=== PATIENT | female | born 1985 | race Caucasian/White ===

== ENCOUNTER 2016-10-03 06:09 | Observation (INO) | payer MEDICAID, OTHER ==
[~2016-10-03] VITALS: Ht 160 cm; Wt 75.5 kg
[2016-10-03 06:17] VITALS: Ht 160 cm; Wt 75.5 kg
[2016-10-03] MEDS ORDERED: ONDANSETRON 4 MG INJ IV STA (06:32)
[2016-10-03] MEDS ORDERED: HYDROmorphONE 1 MG/ML SYG IV STA (06:32)
[2016-10-03] MEDS ORDERED: SOD CHLORIDE 0.9% 1,000 ML IV STA (06:32)
[2016-10-03 07:04] LABS: BASOPHILS % 0.4 % (0.0-2.0); EOSINOPHILS # 0.4 10^3/ul (0.0-0.5); EOSINOPHILS % 5.8 % (0.0-7.0); HEMATOCRIT 39.4 % (37.0-47.0); HEMOGLOBIN 13.4 g/dl (12.0-16.0); LYMPHOCYTES # 2.6 10^3/ul (0.8-2.9); MEAN CORPUSCULAR HEMOGLOBIN 30.3 pg (29.0-33.0); MEAN CORPUSCULAR VOLUME 89.1 fl (82.0-101.0); MEAN PLATELET VOLUME 10.8 fl (7.4-10.4); MONOCYTE # 0.5 10^3/ul (0.3-0.9); MONOCYTES % 7.7 % (0.0-11.0); NEUTROPHIL # 3.2 10^3/ul (1.6-7.5); NEUTROPHILS % 48.1 % (39.0-77.0); PLATELET COUNT 226 10^3/UL (140-415); RED BLOOD COUNT 4.42 10^6/ul (4.20-5.40); WHITE BLOOD COUNT 6.7 10^3/ul (4.8-10.8)
[2016-10-03 07:13] LABS: ADD UMIC YES; UR ASCORBIC ACID 20 mg/dL (NEGATIVE); UR BILIRUBIN (Dip) NEGATIVE (NEGATIVE); UR BLOOD (Dip) 2+ mg/dL (NEGATIVE); UR CLARITY SLIGHTLY CLOUDY (CLEAR); UR COLOR YELLOW (YELLOW); UR GLUCOSE (Dip) NEGATIVE (NEGATIVE); UR KETONES (Dip) NEGATIVE (NEGATIVE); UR LEUKOCYTE ESTERASE (Dip) 2+ Leu/ul (NEGATIVE); UR MUCUS FEW /HPF (NONE SEEN); UR NITRITE (Dip) NEGATIVE (NEGATIVE); UR RBC 9 /HPF (0-5); UR SPECIFIC GRAVITY (Dip) 1.024 (1.003-1.030); UR SQUAMOUS EPITHELIAL CELL FEW /HPF (FEW); UR TOTAL PROTEIN (Dip) NEGATIVE (NEGATIVE); UR UROBILINOGEN (Dip) NEGATIVE (NEGATIVE)
[2016-10-03 07:19] LABS: ALBUMIN 4.4 g/dl (3.3-4.9); ALBUMIN/GLOBULIN RATIO 1.29; BILIRUBIN,INDIRECT 0.4 mg/dl (0-1.1); BILIRUBIN,TOTAL 0.4 mg/dl (0.2-1.3); CALCIUM 9.1 mg/dl (8.4-10.2); CREATININE 0.74 mg/dl (0.44-1.00); TOTAL PROTEIN 7.8 g/dl (6.1-8.1)
[2016-10-03] MEDS ORDERED: IOHEXOL 300MG/ML 150 ML BTL ONE (07:38)
[2016-10-03] MEDS ORDERED: SOD CHLORIDE 0.9% 100 ML ONE (07:38)
--- NOTE | 2016-10-03 08:05 | RADRPT ---
PROCEDURE: CT abdomen and pelvis with contrast. CLINICAL INDICATION: abdominal pain TECHNIQUE: CT scan of the abdomen and pelvis with contrast [facility] The patient was scanned after administration of 100 cc of Omnipaque-300 intravenous contrast. Sagittal and coronal reformatted images were obtained from the axial source images. One or more of the following dose reduction techniques were used: - Automated exposure control. - Adjustment of the mA and/or kV according to patient size. - Use of iterative reconstruction technique. DLP 829.8 mGycm. CTDIvol 13.3 mGy COMPARISON: None. FINDINGS: The lung bases are clear. There is normal density and enhancement of the liver with no focal lesion. There is mild prominence of the biliary ductal system without roberto carlos dilatation. Debris is seen in the gallbladder which cou ld represent sludge or stones with possible borderline gallbladder wall thickening without visible s urrounding fat stranding. The spleen is unremarkable without mass. The adrenal glands are within normal limits without mass. The kidneys enhance symmetrically bilaterally without hydronephrosis or perinephric stranding. The pancreas is unremarkable without focal lesion or surrounding inflammatory changes. There is no bowel obstruction or focal bowel inflammation. The appendix is unremarkable. There is a diffusely prominently fecal filled colon. There is no free air. There is no free fluid. There are no enlarged lymph nodes. The aorta is unremarkable and there is no acute osseous abnormality. The uterus and adnexal structures are grossly within normal limits. Follicular changes seen within t he ovaries bilaterally. IMPRESSION: The gallbladder has either sludge or stones with possible gallbladder wall thickening that is indete rminate and can be better assessed with gallbladder ultrasound. There is slight prominence of the c ommon duct without roberto carlos dilatation and this can be correlate with bilirubin levels. There is a diffusely fecal filled colon. No evidence of bowel obstruction or inflammation. There i s no appendicitis. RPTAT: AA .Henry Andersen MD, MD Date Time Electronically viewed and signed by .Henry Andersen MD, MD on 10/03/2016 08:04 .Debbie/
--- NOTE | 2016-10-03 08:46 | RADRPT ---
PROCEDURE: US Abdomen Limited . CLINICAL INDICATION: Abdominal pain TECHNIQUE: Multiple real-time images were acquired of the patient's right upper quadrant abdomen u tilizing a high resolution transducer. COMPARISON: CT October 03, 2016 FINDINGS: The liver measures 13.1 cm and demonstrates a normal echogenicity. The gallbladder is filled with a moderate amount of bile. Multiple echogenic, shadowing gallstones are identified in the gallbladder . The largest measures up to approximately 2.5 cm, near the gallbladder neck. The gallbladder wall is not thickened at 2.8 mm. No pericholecystic fluid is noted. The common bile duct measures 8.1 mm in diameter. The pancreas is not well visualized. Antegrade flow is seen in the portal vein. Right kidney measures 10.3 cm. Right kidney demonstrates a normal echogenicity. Mild right hydrone phrosis is observed. No solid masses or stones are seen. IMPRESSION: Cholelithiasis with a dilated common bile duct. Etiology of common bile duct dilation is uncertain. Distal common bile duct obstruction is not excluded. If further characterization is needed MRCP o r ERCP could be helpful. Pancreas not well visualized. If characterization of this structure is needed repeat exam or MRI is recommended. Mild right hydronephrosis. Etiology is uncertain. Continued follow-up to assess for persistence of this finding can be considered. RPTAT: AA .Jonny Wolf MD, Date Time Electronically viewed and signed by .Jonny Wolf MD, on 10/03/2016 08:45 .P/
[2016-10-03 11:30] VITALS: TEMP 98.2
--- NOTE | 2016-10-03 11:37 | RADRPT ---
PROCEDURE: MRCP. CLINICAL INDICATION: Right upper quadrant pain. TECHNIQUE: MRCP was performed on the a high-resolution, high Lola field strength scanner. Patien haley was examined without contrast. 3-D coronal rotating MIP images of the biliary tree are available for review. COMPARISON: Correlation with CT and ultrasound from the same day. FINDINGS: Multiple stones are present within the gallbladder measuring up to 2.9 x 2.2 cm within the gallbladd er body. There are at least 4 additional calculi seen within the gallbladder fundus measuring up to 1.3 cm in diameter. No definite acute gallbladder wall edema or pericholecystic inflammatory ewing es are seen. There is mild prominence of the proximal common bile duct which measures up to 6.4 mm in diameter. A focal signal abnormality within the distal CBD measures 5 mm in diameter, consistent with an obstructing stone, located approximately 1 cm from the ampulla. There is no significant in trahepatic or pancreatic ductal dilatation. There is no evidence of pancreatic divisum. There is mild fullness of the right renal pelvis without roberto carlos hydronephrosis. The liver, spleen, a drenal glands, kidneys, and stomach demonstrate normal signal intensity and morphology. The visuali zed bowel is unremarkable. IMPRESSION: 1. 5 mm obstructive calculus in the distal common bile duct resulting mild extrahepatic ductal dila tation (pictured below). 2. Cholelithiasis without evidence of cholecystitis. RPTAT: JJ .Nate Storey MD, Date Time Electronically viewed and signed by .Nate Storey MD, on 10/03/2016 11:37 .A/
--- NOTE | 2016-10-03 12:09 | ERA ---
ER Documentation Chief Complaint Date/Time DATE: 10/03/16 TIME: 12:06 Chief Complaint right abd pain, nausea,took Tylenol at 0430 HPI This is a 31-year-old female complains of pain in the right mid abdomen onset this morning. The patient says she is nauseated but no vomiting no diarrhea. The pain is described as sharp and nonradiating. She says she has no fever no decrease in appetite no prior symptoms like this in the past. No back pain hematuria dysuria or vaginal discharge. ROS All systems reviewed and are negative except as per history of present illness. Allergies Allergies: Coded Allergies: No Known Allergy (Unverified , 10/03/16) PMhx/Soc Medical and Surgical Hx: pt denies Medical Hx, pt denies Surgical Hx Hx Alcohol Use: No Hx Substance Use: No Hx Tobacco Use: No Smoking Status: Never smoker FmHx Family History: No coronary disease Physical Exam Vitals Vital Signs Date Time Temp Pulse Resp B/P Pulse Ox O2 Delivery O2 Flow Rate FiO2 10/03/16 12:59 68 17 119/65 100 Room Air 10/03/16 11:30 98.2 76 18 118/56 99 Room Air 10/03/16 06:17 97.5 85 18 114/55 99 Physical Exam Const: Well-developed, well-nourished Head: Atraumatic, normocephalic Eyes: Normal Conjunctiva, PERRLA, EOMI, normal sclera, no nystagmus ENT: Normal External Ears, Nose and Mouth, moist mucus membranes. Neck: Full range of motion. No meningismus, no lymphadenopathy. Resp: Clear to auscultation bilaterally, no wheezing, rhonchi, rales Cardio: Regular rate and rhythm, no murmurs, S1 S2 present Abd: Soft, tenderness to the right mid abdomen that extends into the right lower quadrant moderate, non distended. Normal bowel sounds, no guarding or rebound, no pulsitile abdominal masses or bruits Skin: No petechiae or rashes, no ecchymosis , no maculopapular rash Back: No midline or flank tenderness Ext: No cyanosis, or edema, FROM x 4, normal inspection, neurovascularly intact x 4 Neur: Awake and alert, STR 5/5 x 4, sensation intact x 4, no focal findings, cerebellum intact Psych: Normal Mood and Affect Result Diagram: 10/03/16 0650 10/03/16 0650 Results 24 hrs Laboratory Tests Test 10/03/16 06:50 10/03/16 06:52 White Blood Count 6.710^3/ul Red Blood Count 4.4210^6/ul Hemoglobin 13.4g/dl Hematocrit 39.4% Mean Corpuscular Volume 89.1fl Mean Corpuscular Hemoglobin 30.3pg Mean Corpuscular Hemoglobin Concent 34.0g/dl Red Cell Distribution Width 12.0% Platelet Count 75084^3/UL Mean Platelet Volume 10.8fl Neutrophils % 48.1% Lymphocytes % 38.0% Monocytes % 7.7% Eosinophils % 5.8% Basophils % 0.4% Nucleated Red Blood Cells % 0.0/100WBC Neutrophils # 3.210^3/ul Lymphocytes # 2.610^3/ul Monocytes # 0.510^3/ul Eosinophils # 0.410^3/ul Basophils # 0.010^3/ul Nucleated Red Blood Cells # 0.010^3/ul Sodium Level 145mmol/L Potassium Level 4.0mmol/L Chloride Level 105mmol/L Carbon Dioxide Level 25mmol/L Anion Gap 19 Blood Urea Nitrogen 12mg/dl Creatinine 0.74mg/dl Glucose Level 89mg/dl Calcium Level 9.1mg/dl Total Bilirubin 0.4mg/dl Direct Bilirubin 0.00mg/dl Indirect Bilirubin 0.4mg/dl Aspartate Amino Transf (AST/SGOT) 72IU/L Alanine Aminotransferase (ALT/SGPT) 52IU/L Alkaline Phosphatase 64IU/L Total Protein 7.8g/dl Albumin 4.4g/dl Globulin 3.40g/dl Albumin/Globulin Ratio 1.29 Lipase 204U/L Urine Color YELLOW Urine Clarity SLIGHTLY CLOUDY Urine pH 5.0 Urine Specific Carmen 1.024 Urine Ketones NEGATIVEmg/dL Urine Nitrite NEGATIVEmg/dL Urine Bilirubin NEGATIVEmg/dL Urine Urobilinogen NEGATIVEmg/dL Urine Leukocyte Esterase 2+Sole/ul Urine Microscopic RBC 9/HPF Urine Microscopic WBC 17/HPF Urine Squamous Epithelial Cells FEW/HPF Urine Mucus FEW/HPF Urine Hemoglobin 2+mg/dL Urine Glucose NEGATIVEmg/dL Urine Total Protein NEGATIVEmg/dl Current Medications Medications (Trade) Dose Ordered Sig/Reid Route PRN Reason Start Time Stop Time Status Last Admin Dose Admin Sodium Chloride (NS) 1,000 ml @ 1,000 mls/hr Q1H STAT IV 10/03/16 06:32 10/03/16 07:31 DC 10/03/16 06:45 Hydromorphone HCl (Dilaudid) 1 mg ONCE STAT IV 10/03/16 06:32 10/03/16 06:34 DC 10/03/16 06:45 Ondansetron HCl (Zofran Inj) 4 mg ONCE STAT IV 10/03/16 06:32 10/03/16 06:34 DC 10/03/16 06:45 IV Flush 10 ml 10 ml STK-MED ONCE .ROUTE 10/03/16 07:38 10/03/16 07:39 DC 10/03/16 07:58 Sodium Chloride (NS) 100 ml @ ud STK-MED ONCE .ROUTE 10/03/16 07:38 10/03/16 07:39 DC 10/03/16 07:59 Iohexol (Omnipaque 300mg/ ml) 150 ml STK-MED ONCE .ROUTE 10/03/16 07:38 10/03/16 07:39 DC 10/03/16 07:59 Procedures/MDM PROCEDURE: CT abdomen and pelvis with contrast. CLINICAL INDICATION: abdominal pain TECHNIQUE: CT scan of the abdomen and pelvis with contrast was performed on a multi-slice CT scanner . The patient was scanned after administration of 100 cc of Omnipaque-300 intravenous contrast. Sagittal and coronal reformatted images were obtained from the axial source images. One or more of the following dose reduction techniques were used: - Automated exposure control. - Adjustment of the mA and/or kV according to patient size. - Use of iterative reconstruction technique. DLP 829.8 mGycm. CTDIvol 13.3 mGy COMPARISON: None. FINDINGS: The lung bases are clear. There is normal density and enhancement of the liver with no focal lesion. There is mild prominence of the biliary ductal system without roberto carlos dilatation. Debris is seen in the gallbladder which could represent sludge or stones with possible borderline gallbladder wall thickening without visible surrounding fat stranding. The spleen is unremarkable without mass. The adrenal glands are within normal limits without mass. The kidneys enhance symmetrically bilaterally without hydronephrosis or perinephric stranding. The pancreas is unremarkable without focal lesion or surrounding inflammatory changes. There is no bowel obstruction or focal bowel inflammation. The appendix is unremarkable. There is a diffusely prominently fecal filled colon. There is no free air. There is no free fluid. There are no enlarged lymph nodes. The aorta is unremarkable and there is no acute osseous abnormality. The uterus and adnexal structures are grossly within normal limits. Follicular changes seen within the ovaries bilaterally. IMPRESSION: The gallbladder has either sludge or stones with possible gallbladder wall thickening that is indeterminate and can be better assessed with gallbladder ultrasound. There is slight prominence of the common duct without roberto carlos dilatation and this can be correlate with bilirubin levels. There is a diffusely fecal filled colon. No evidence of bowel obstruction or inflammation. There is no appendicitis. RPTAT: AA .Henry Andersen MD, Date Time Electronically viewed and signed by .Henry Andersen MD, MD on 10/03/2016 08:04 .J/ CC: GARO BRANCH DO PROCEDURE: US Abdomen Limited . CLINICAL INDICATION: Abdominal pain TECHNIQUE: Multiple real-time images were acquired of the patient's right upper quadrant abdomen utilizing a high resolution transducer. COMPARISON: CT October 03, 2016 FINDINGS: The liver measures 13.1 cm and demonstrates a normal echogenicity. The gallbladder is filled with a moderate amount of bile. Multiple echogenic, shadowing gallstones are identified in the gallbladder. The largest measures up to approximately 2.5 cm, near the gallbladder neck. The gallbladder wall is not thickened at 2.8 mm. No pericholecystic fluid is noted. The common bile duct measures 8.1 mm in diameter. The pancreas is not well visualized. Antegrade flow is seen in the portal vein. Right kidney measures 10.3 cm. Right kidney demonstrates a normal echogenicity. Mild right hydronephrosis is observed. No solid masses or stones are seen. IMPRESSION: Cholelithiasis with a dilated common bile duct. Etiology of common bile duct dilation is uncertain. Distal common bile duct obstruction is not excluded. If further characterization is needed MRCP or ERCP could be helpful. Pancreas not well visualized. If characterization of this structure is needed repeat exam or MRI is recommended. Mild right hydronephrosis. Etiology is uncertain. Continued follow-up to assess for persistence of this finding can be considered. RPTAT: AA .Jonny Wolf MD, MD Date Time Electronically viewed and signed by .Jonny Wolf MD, MD on 10/03/2016 08:45 .P/ CC: GARO BRANCH DO PROCEDURE: MRCP. CLINICAL INDICATION: Right upper quadrant pain. TECHNIQUE: MRCP was performed on the a high-resolution, high Lola field strength scanner. Patient was examined without contrast. 3-D coronal rotating MIP images of the biliary tree are available for review. COMPARISON: Correlation with CT and ultrasound from the same day. FINDINGS: Multiple stones are present within the gallbladder measuring up to 2.9 x 2.2 cm within the gallbladder body. There are at least 4 additional calculi seen within the gallbladder fundus measuring up to 1.3 cm in diameter. No definite acute gallbladder wall edema or pericholecystic inflammatory changes are seen. There is mild prominence of the proximal common bile duct which measures up to 6.4 mm in diameter. A focal signal abnormality within the distal CBD measures 5 mm in diameter, consistent with an obstructing stone, located approximately 1 cm from the ampulla. There is no significant intrahepatic or pancreatic ductal dilatation. There is no evidence of pancreatic divisum. There is mild fullness of the right renal pelvis without roberto carlos hydronephrosis. The liver, spleen, adrenal glands, kidneys, and stomach demonstrate normal signal intensity and morphology. The visualized bowel is unremarkable. IMPRESSION: 1. 5 mm obstructive calculus in the distal common bile duct resulting mild extrahepatic ductal dilatation (pictured below). 2. Cholelithiasis without evidence of cholecystitis. RPTAT: JJ .Nate Storey MD, Date Time Electronically viewed and signed by .Nate Storey MD, on 10/03/2016 11:37 .A/ CC: GARO BRANCH DO Patient is MRCP demonstrated a 5 mm obstructive stone in the duct. I paged Dr. banks upper GI. The patient admitted to the hospital for ERCP for stone removal and subsequent gallbladder removal to follow Departure Diagnosis: Primary Impression: Choledocholithiasis Condition: Stable GARO BRANCH DO Oct 03, 2016 12:09
[2016-10-03] MEDS ORDERED: SOD CHLORIDE 0.9% 1,000 ML IV SCH (13:36)
[2016-10-03] MEDS ORDERED: ONDANSETRON 4 MG INJ IV PRN ×2 (14:00→14:30)
[2016-10-03] MEDS ORDERED: ACETAMINOPHEN 325 MG TAB PO PRN ×2 (14:00→14:30)
[2016-10-03] MEDS ORDERED: NACL 0.9% 3 ML SYG IV SCH (14:30)
[2016-10-03] MEDS ORDERED: HYDROCODONE/APAP (5/325) TAB PO PRN (14:30)
[2016-10-03] MEDS ORDERED: morphine 2 MG INJ IV PRN (14:30)
[2016-10-03] MEDS: CEFTRIAXONE 1 GM/50 ML (PMX) 50 ML IVPB SCH (14:43)
--- NOTE | 2016-10-03 14:45 | HP ---
Date/Time of Note Date/Time of Note DATE: 10/03/16 TIME: 14:34 Assessment/Plan VTE Prophylaxis VTE Prophylaxis Intervention: SCD's Assessment/Plan Chief Complaint/Hosp Course 1. Abdominal pain. Secondary to cholelithiasis and underlying choledocholithiasis. The patient will be kept n.p.o. The patient will be provided with adequate pain control. The patient needs an ERCP. Gastroenterology has been consulted. General surgery is also on board. 2. Positive urinalysis. Possible underlying urinary tract infection. Urine cultures will be obtained. The patient will be started on empiric antibiotics. 3. Overweight. BMI of 29.5 kg/m. A fasting lipid panel and a hemoglobin A1c will be obtained. Plan: The patient will be admitted to inpatient medical surgical floor floor. The patient will be kept n.p.o. The patient will be started on DVT prophylaxis and gastrointestinal prophylaxis. The patient will remain a full code. Activities will be as tolerated. The rest of the patient's management will be based on the clinical course, inputs from consultants, and the results of diagnostic studies. Based on the patient's clinical presentation, she most probably requires at least one midnight's stay for further management and evaluation of her clinical presentation. The case and management of this patient was fully discussed with . Problems: HPI/ROS Admit Date/Time Admit Date/Time Reason for admission: Abdominal pain. Consultants 1. Shanel Owen MD, Gastroenterology. 2. Johny Emanuel MD, General Surgery. This is a 31-year-old female who denied any significant past medical history and came to the emergency room with a chief complaint of abdominal pain that has been going on since the morning of 10/03/2016. The patient described the pain as sharp. The patient also verbalized associated nausea. The patient denied any vomiting. She denied any constipation or diarrhea. She denied any fevers or chills. The patient denied any dysuria, hematuria, or pyuria. The patient verbalized that she had a similar problem approximately 3 months ago when she was told that she has gallstones. The patient tried [id number] ibuprofen with minimal pain relief. The patient denied any other symptoms including any constitutional symptoms. In the emergency room, the patient underwent a CT scan of the abdomen and pelvis that showed gallbladder with either sludge or stones with possible gallbladder wall thickening that is indeterminate with a slight prominence of the common bile duct without roberto carlos dilatation. The CT also showed diffusely fecal filled colon with no evidence of bowel obstruction or inflammation. The patient underwent a gallbladder ultrasound that showed cholelithiasis with a mildly dilated common bile duct. The ultrasound also revealed mild right hydronephrosis. The patient subsequently underwent an abdominal MRI that showed 5 mm obstructing calculus in the distal common bile duct resulting in mild extrahepatic ductal diet dilatation and cholelithiasis without evidence of cholecystitis. The patient had no leukocytosis. The patient remained afebrile. The patient's urinalysis showed 2+ leukocyte esterase with urine microscopic WBC of 17. ROS Constitutional: no complaints Eyes: no complaints ENT: no complaints Respiratory: no complaints Cardiovascular: no complaints Gastrointestinal: nausea, pain Genitourinary: no complaints Musculoskeletal: no complaints Skin: no complaints Neurologic: no complaints Endocrine: no complaints Lymphatic: no complaints Psychological: no complaints Immunologic: no complaints PMH/Family/Social Past Medical History Medical History: no pertinent history Past Surgical History Past Surgical Hx: no surgical history Social History Alcohol Use: none Smoking Status: Never smoker Drug Use: none Exam/Review of Systems Vital Signs Vitals Vital Signs Date Time Temp Pulse Resp B/P Pulse Ox O2 Delivery O2 Flow Rate FiO2 10/03/16 12:59 68 17 119/65 100 Room Air 10/03/16 11:30 98.2 Exam Exam General: Adequately build 31 year-old female lying in bed in no apparent distress. HEENT: Normocephalic, atraumatic. Eyes: Anicteric sclerae, conjunctivae clear. ENT: Nasal septum midline, oral mucosa moist. Neck supple, no JVD noticed. Respiratory: Bilaterally clear breath sounds. No use of accessory muscles of respiration. No adventitious breath sounds. Cardiovascular: S1, S2 heard. No murmurs or gallops. Abdomen: Soft and nondistended. Bowel sounds positive in all 4 quadrants. RUQ tenderness. Genitourinary: No CVA tenderness. Extremities: No cyanosis, no clubbing, no edema. Peripheral pulses palpable. Neurologic: Cranial nerves II through XII grossly intact. The patient is awake, alert, and oriented. Skin: Normal skin turgor. No skin rashes. Labs Result Diagram: 10/03/16 0650 10/03/16 0650 Medications Medications Current Medications Sodium Chloride (NS) 1,000 ml @ 80 mls/hr [id number] IV ; Start 10/03/16 at 13:36 ; Stop 10/04/16 at 02:05 Procedures Procedures Abdominal MRI IMPRESSION: 1. 5 mm obstructive calculus in the distal common bile duct resulting mild extrahepatic ductal dilatation (pictured below). 2. Cholelithiasis without evidence of cholecystitis. CT Scan of the Abdomen and Pelvis IMPRESSION: The gallbladder has either sludge or stones with possible gallbladder wall thickening that is indeterminate and can be better assessed with gallbladder ultrasound. There is slight prominence of the common duct without roberto carlos dilatation and this can be correlate with bilirubin levels. There is a diffusely fecal filled colon. No evidence of bowel obstruction or inflammation. There is no appendicitis. Gallbladder Ultrasound IMPRESSION: Cholelithiasis with a dilated common bile duct. Etiology of common bile duct dilation is uncertain. Distal common bile duct obstruction is not excluded. If further characterization is needed MRCP or ERCP could be helpful. Pancreas not well visualized. If characterization of this structure is needed repeat exam or MRI is recommended. Mild right hydronephrosis. Etiology is uncertain. Continued follow-up to assess for persistence of this finding can be considered. FRANCIE PEACE NP Oct 03, 2016 14:44 FRANCIE PEACE NP Oct 03, 2016 14:44
[2016-10-03] MEDS: D5W-0.45 NACL + KCL 20 MEQ 1,000 ML IV SCH (15:09)
--- NOTE | 2016-10-03 15:13 | CONS ---
Date/Time of Note Date/Time of Note DATE: 10/03/16 TIME: 14:53 Assessment/Plan Assessment/Plan Additional Assessment/Plan Assessment Abdominal pain MRCP 5 mm obstructive calculus in the distal common bile duct resulting mild extrahepatic ductal dilatation . Cholelithiasis without evidence of cholecystitis. Plan * ERCP tomorrow 10/04/2016 (0900) risk and benefit explained to patient and agreed with the procedure * Suggest consultation to surgery for cholecystectomy * NPO * Adequate pain control * CBC,CMP,Lipase tomorrow * PT/INR tomorrow * case discussed with DR Owen * Further orders will depend on clinical course Consultation Date/Type/Reason Admit Date/Time Date of Consultation: Oct 03, 2016 Type of Consultation: Gastroenterology Reason for Consultation distal cbd stone Referring Provider: FRANCIE PEACE NP Hx of Present Illness 31 year old female with past medical history of gallstone presented in the emergency room complaining of right upper quadrant abdominal pain.Present condition apparently started 1 day prior to admission as sudden onset of right upper quadrant pain sharp with radiation to the backassociated with nausea but no vomiting.She denies any hematemesis,chest pain,shortness of breath,any history of travel,or jaundice.Ultrasound revealed Cholelithiasis with a dilated common bile duct. Etiology of common bile duct dilation is uncertain. Distal common bile duct obstruction is not excluded. If further characterization is needed MRCP or ERCP could be helpful.Pancreas not well visualized. If characterization of this structure is needed repeat exam or MRI is recommended. Mild right hydronephrosis. Etiology is uncertain. Continued follow-up to assess for persistence of this finding can be considered.MRI revealed 5 mm obstructive calculus in the distal common bile duct resulting mild extrahepatic ductal dilatation (pictured below).. Cholelithiasis without . evidence of cholecystitis.CBC Hemoglobin 13.4 Hematocrit 39.4 ,WBC 6.7,Na 145, AST 72,ALT 52,alkaline phosphatase 64,Lipase 204. She presently denies abdominal pain,nausea nor vomiting.I have explained to the patient that an ERCP will be performed tomorrow to remove the CBD stone and a surgery evaluation is also needed Constitutional: improved, no complaints Eyes: no complaints ENT: no complaints Respiratory: no complaints Cardiovascular: no complaints Gastrointestinal: flatus, pain Genitourinary: no complaints Musculoskeletal: no complaints Skin: no complaints Neurologic: no complaints Endocrine: no complaints Lymphatic: no complaints Psychological: nl mood/affect, no complaints Immunologic: no complaints Past Medical History Medical History: gallstones Past Surgical History Past Surgical Hx: no surgical history Family History Significant Family History: no pertinent family hx Social History Alcohol Use: none Smoking Status: Never smoker Exam/Review of Systems Vital Signs Vitals Vital Signs Date Time Temp Pulse Resp B/P Pulse Ox O2 Delivery O2 Flow Rate FiO2 10/03/16 12:59 68 17 119/65 100 Room Air 10/03/16 11:30 98.2 Exam Constitutional: alert, oriented Psych: nl mood/affect, no complaints Head: atraumatic, normocephalic Eyes: EOMI, PERRL, nl conjunctiva, nl lids, nl sclera ENMT: nl external ears & nose, nl lips & teeth, nl nasal mucosa & septum Neck: non-tender, supple Respiratory: clear to auscultation, normal air movement Cardiovascular: nl pulses, regular rate and rhythm Gastrointestinal: bowel sounds, nl liver, spleen, non-tender, soft, No rebound or guarding Musculoskeletal: nl extremities to inspection, nl gait and stance Extremities: normal pulses Neurological: LOWER IN SUPERVISOR II-XII intact, nl mental status, nl speech, nl strength Skin: nl turgor, No rash or lesions Lymph: nl lymph nodes Results Result Diagram: 10/03/16 0650 10/03/16 0650 Results 24 hrs Laboratory Tests Test 10/03/16 06:50 10/03/16 06:52 White Blood Count 6.7 Red Blood Count 4.42 Hemoglobin 13.4 Hematocrit 39.4 Mean Corpuscular Volume 89.1 Mean Corpuscular Hemoglobin 30.3 Mean Corpuscular Hemoglobin Concent 34.0 Red Cell Distribution Width 12.0 Platelet Count 226 Mean Platelet Volume 10.8 H Neutrophils % 48.1 Lymphocytes % 38.0 Monocytes % 7.7 Eosinophils % 5.8 Basophils % 0.4 Nucleated Red Blood Cells % 0.0 Neutrophils # 3.2 Lymphocytes # 2.6 Monocytes # 0.5 Eosinophils # 0.4 Basophils # 0.0 Nucleated Red Blood Cells # 0.0 Sodium Level 145 H Potassium Level 4.0 Chloride Level 105 Carbon Dioxide Level 25 Anion Gap 19 H Blood Urea Nitrogen 12 Creatinine 0.74 Glucose Level 89 Calcium Level 9.1 Total Bilirubin 0.4 Direct Bilirubin 0.00 Indirect Bilirubin 0.4 Aspartate Amino Transf (AST/SGOT) 72 H Alanine Aminotransferase (ALT/SGPT) 52 Alkaline Phosphatase 64 Total Protein 7.8 Albumin 4.4 Globulin 3.40 H Albumin/Globulin Ratio 1.29 Lipase 204 Urine Color YELLOW Urine Clarity SLIGHTLY CLOUDY A Urine pH 5.0 Urine Specific [place] 1.024 Urine Ketones NEGATIVE Urine Nitrite NEGATIVE Urine Bilirubin NEGATIVE Urine Urobilinogen NEGATIVE Urine Leukocyte Esterase 2+ H Urine Microscopic RBC 9 H Urine Microscopic WBC 17 H Urine Squamous Epithelial Cells FEW Urine Mucus FEW A Urine Hemoglobin 2+ H Urine Glucose NEGATIVE Urine Total Protein NEGATIVE Medications Medications Current Medications Sodium Chloride 1,000 ml @ 80 mls/hr [id number] IV ; Start 10/03/16 at 13:36; Stop 10/04/16 at 02:05 Potassium Chloride/Dextrose/ Sod Cl (D5-1/2ns + KCl 20 Meq) 1,000 ml @ 100 mls/ hr Q10H IV ; Start 10/03/16 at 14:21 Ondansetron HCl (Zofran Inj) 4 mg Q6H PRN IV NAUSEA AND/OR VOMITING; Start 01/09 at 14:30 Acetaminophen (Tylenol Tab) 650 mg Q6H PRN PO PAIN LEVEL 1-3 OR FEVER; Start at 14:30 Acetaminophen/ Hydrocodone Bitart ([place] (5/325)) 1 tab Q6H PRN PO MODERATE PAIN LEVEL 4-6; Start 10/03/16 at 14:30 Morphine Sulfate (morphine) 2 mg Q4H PRN IV SEVERE PAIN LEVEL 7-10; Start 10/03 at 14:30 Famotidine 20 mg 20 mg Q12 PO ; Start 10/03/16 at 21:00 Ceftriaxone Sodium (Rocephin) 50 ml @ 100 mls/hr Q24H IVPB Last administered on 10/03/16t 14:43; Admin Dose 100 MLS/HR; Start 10/03/16 at 14:30 MAYO ENNIS NP Oct 03, 2016 15:05
[2016-10-03 17:32] VITALS: BP 102/56; PULSE 60; RESP 18
--- NOTE | 2016-10-03 18:33 | CONS ---
Date/Time of Note Date/Time of Note DATE: 10/03/16 TIME: 18:26 Assessment/Plan Assessment/Plan Chief Complaint/Hosp Course 1. Choledocholithiasis: No abdominal pain currently -ERCP tomorrow -pain management -NPO 2. Cholelithiasis without cholecystitis: Gb with multiple stones -eventual cholecystectomy -as above 3. Hypernatremia -judicious fluids 4. Overweight: BMI 30 -diet and lifestyle modification Patient seen and examined in collaboration with Dr. Johny Emanuel. Thank you. Problems: Consultation Date/Type/Reason Date of Consultation: Oct 03, 2016 Type of Consultation: surgical Reason for Consultation Choledocholithiasis Referring Provider: FRANCIE PEACE NP Hx of Present Illness Sarah Boston is a 31 yo woman who presents to the ED with complaints of abdominal pain that has been on going since this morning. The pain is described as sharp. Associated symptoms include nausea without vomiting. She recounts having a similar pain 3 months ago when she was diagnosed with gallstones. She denies fevers or chills, hematuria or change in bowel habits. MRCP shows 5 mm obstructive calculus in the distal common bile duct and cholelithiasis without evidence of cholecystitis. Surgical consult was called to evaluate. Constitutional: improved, no complaints Eyes: no complaints ENT: no complaints Respiratory: no complaints Cardiovascular: no complaints Gastrointestinal: flatus, pain Genitourinary: no complaints Musculoskeletal: no complaints Skin: no complaints Neurologic: no complaints Endocrine: no complaints Lymphatic: no complaints Psychological: nl mood/affect, no complaints Immunologic: no complaints Past Medical History Medical History: gallstones Past Surgical History Past Surgical Hx: no surgical history Family History Significant Family History: no pertinent family hx Social History Alcohol Use: none Smoking Status: Never smoker Drug Use: none Exam/Review of Systems Vital Signs Vitals Vital Signs Date Time Temp Pulse Resp B/P Pulse Ox O2 Delivery O2 Flow Rate FiO2 10/03/16 17:32 98.8 60 18 102/56 98 Room Air Exam Constitutional: alert, oriented Psych: nl mood/affect, no complaints Head: atraumatic, normocephalic Eyes: nl conjunctiva, nl lids, nl sclera, No icteric ENMT: mucosa pink and moist Neck: non-tender, supple Respiratory: clear to auscultation, normal air movement Cardiovascular: nl pulses, regular rate and rhythm Gastrointestinal: bowel sounds, distended (mod), non-tender, soft Genitourinary - Female: nl external genitalia Musculoskeletal: nl extremities to inspection Extremities: normal pulses, No clubbing, No edema Neurological: nl mental status, nl speech, nl strength Skin: No rash or lesions Results Result Diagram: 10/03/16 0650 10/03/16 0650 Results 24 hrs Laboratory Tests Test 10/03/16 06:50 10/03/16 06:52 White Blood Count 6.7 Red Blood Count 4.42 Hemoglobin 13.4 Hematocrit 39.4 Mean Corpuscular Volume 89.1 Mean Corpuscular Hemoglobin 30.3 Mean Corpuscular Hemoglobin Concent 34.0 Red Cell Distribution Width 12.0 Platelet Count 226 Mean Platelet Volume 10.8 H Neutrophils % 48.1 Lymphocytes % 38.0 Monocytes % 7.7 Eosinophils % 5.8 Basophils % 0.4 Nucleated Red Blood Cells % 0.0 Neutrophils # 3.2 Lymphocytes # 2.6 Monocytes # 0.5 Eosinophils # 0.4 Basophils # 0.0 Nucleated Red Blood Cells # 0.0 Sodium Level 145 H Potassium Level 4.0 Chloride Level 105 Carbon Dioxide Level 25 Anion Gap 19 H Blood Urea Nitrogen 12 Creatinine 0.74 Glucose Level 89 Calcium Level 9.1 Total Bilirubin 0.4 Direct Bilirubin 0.00 Indirect Bilirubin 0.4 Aspartate Amino Transf (AST/SGOT) 72 H Alanine Aminotransferase (ALT/SGPT) 52 Alkaline Phosphatase 64 Total Protein 7.8 Albumin 4.4 Globulin 3.40 H Albumin/Globulin Ratio 1.29 Lipase 204 Urine Color YELLOW Urine Clarity SLIGHTLY CLOUDY A Urine pH 5.0 Urine Specific [place] 1.024 Urine Ketones NEGATIVE Urine Nitrite NEGATIVE Urine Bilirubin NEGATIVE Urine Urobilinogen NEGATIVE Urine Leukocyte Esterase 2+ H Urine Microscopic RBC 9 H Urine Microscopic WBC 17 H Urine Squamous Epithelial Cells FEW Urine Mucus FEW A Urine Hemoglobin 2+ H Urine Glucose NEGATIVE Urine Total Protein NEGATIVE Medications Medications Current Medications Sodium Chloride 1,000 ml @ 80 mls/hr [id number] IV ; Start 10/03/16 at 13:36; Stop 10/04/16 at 02:05 Potassium Chloride/Dextrose/ Sod Cl (D5-1/2ns + KCl 20 Meq) 1,000 ml @ 100 mls/ hr Q10H IV Last administered on 10/03/16t 15:09; Admin Dose 100 MLS/HR; Start 10/03/16 at 14:21 Ondansetron HCl (Zofran Inj) 4 mg Q6H PRN IV NAUSEA AND/OR VOMITING; Start 01/09 at 14:30 Acetaminophen (Tylenol Tab) 650 mg Q6H PRN PO PAIN LEVEL 1-3 OR FEVER; Start at 14:30 Acetaminophen/ Hydrocodone Bitart ([place] (5/325)) 1 tab Q6H PRN PO MODERATE PAIN LEVEL 4-6; Start 10/03/16 at 14:30 Morphine Sulfate (morphine) 2 mg Q4H PRN IV SEVERE PAIN LEVEL 7-10; Start 10/03 at 14:30 Famotidine 20 mg 20 mg Q12 PO ; Start 10/03/16 at 21:00 Ceftriaxone Sodium (Rocephin) 50 ml @ 100 mls/hr Q24H IVPB Last administered on 10/03/16t 14:43; Admin Dose 100 MLS/HR; Start 10/03/16 at 14:30 JAY SANDERS NP Oct 03, 2016 18:33
[2016-10-03 19:30] VITALS: BP 99/58; RESP 18
[2016-10-03] MEDS: FAMOTIDINE 20 MG TAB PO SCH (20:23)
[2016-10-04] VITALS (19 sets, daily range): BP systolic 97–139; BP diastolic 44–73; PULSE 69–96; RESP 18–25
[2016-10-04] MEDS: D5W-0.45 NACL + KCL 20 MEQ 1,000 ML IV SCH ×3 (00:28→20:21)
[2016-10-04] MEDS ORDERED: IOHEXOL 300MG/ML 30 ML BTL ONE (08:22)
[2016-10-04] MEDS ORDERED: FENTAnyl 50 MCG/ML VIAL ONE (08:51)
[2016-10-04] MEDS ORDERED: PROPOFOL 20 ML ONE (08:51)
[2016-10-04] MEDS ORDERED: MIDAZOLAM 1 MG/ML 2 ML INJ ONE (08:51)
[2016-10-04] MEDS ORDERED: ROCURONIUM 50 MG INJ ONE (08:51)
[2016-10-04] MEDS ORDERED: CEFAZOLIN 1 GM INJ ONE (08:51)
--- NOTE | 2016-10-04 09:12 | PN ---
Date/Time of Note Date/Time of Note DATE: 10/04/16 TIME: 09:10 Assessment/Plan VTE Prophylaxis VTE Prophylaxis Intervention: SCD's Lines/Catheters IV C[facility]ter Type (from [facility]): Peripheral IV Assessment/Plan Chief Complaint/Hosp Course 1. Abdominal pain. Secondary to cholelithiasis and underlying choledocholithiasis. The patient is scheduled for ERCP today. Gastroenterology and general surgery following. 2. Positive urinalysis. Possible possible underlying urinary tract infection. Urine cultures pending. The patient will be continued on empiric antibiotics. 3. Overweight. BMI of 29.5 kg/m. Weight reduction advised. Pending fasting lipid panel and hemoglobin. 4. Fluids, electrolytes, and nutrition. N.p.o. Continue IV fluids. 5. DVT prophylaxis. Bilateral sequential compression devices. 6. Plan. Continue pain control. Await ERCP. The case and management of this patient was fully discussed with . Problems: Subjective 24 Hr Interval Summary Free Text/Dictation Denies any pain. Denies any nausea. Exam/Review of Systems Vital Signs Vitals Vital Signs Date Time Temp Pulse Resp B/P Pulse Ox O2 Delivery O2 Flow Rate FiO2 10/04/16 07:45 98.2 76 20 102/52 98 Room Air Intake and Output 10/03/16 10/03/16 10/04/16 15:00 23:00 07:00 Intake Total 350 ml 1165 ml Balance 350 ml 1165 ml Exam General: Adequately build 31 year-old female lying in bed in no apparent distress. HEENT: Normocephalic, atraumatic. Eyes: Anicteric sclerae, conjunctivae clear. ENT: Nasal septum midline, oral mucosa moist. Neck supple, no JVD noticed. Respiratory: Bilaterally clear breath sounds. No use of accessory muscles of respiration. No adventitious breath sounds. Cardiovascular: S1, S2 heard. No murmurs or gallops. Abdomen: Soft and nondistended. Bowel sounds positive in all 4 quadrants. RUQ tenderness. Genitourinary: No CVA tenderness. Extremities: No cyanosis, no clubbing, no edema. Peripheral pulses palpable. Neurologic: Cranial nerves II through XII grossly intact. The patient is awake, alert, and oriented. Skin: Normal skin turgor. No skin rashes. Results Result Diagram: 10/03/16 0650 10/03/16 0650 Results 24 hrs Laboratory Tests Test 10/03/16 18:59 Serum HCG, Qualitative NEGATIVE Medications Medications Current Medications Potassium Chloride/Dextrose/ Sod Cl (D5-1/2ns + KCl 20 Meq) 1,000 ml @ 100 mls/ hr Q10H IV Last administered on 10/04/16 00:28; Admin Dose 100 MLS/HR; Start 10/03/16 at 14:21 Ondansetron HCl (Zofran Inj) 4 mg Q6H PRN IV NAUSEA AND/OR VOMITING; Start 01/09 at 14:30 Acetaminophen (Tylenol Tab) 650 mg Q6H PRN PO PAIN LEVEL 1-3 OR FEVER; Start at 14:30 Acetaminophen/ Hydrocodone Bitart ([place] (5/325)) 1 tab Q6H PRN PO MODERATE PAIN LEVEL 4-6; Start 10/03/16 at 14:30 Morphine Sulfate (morphine) 2 mg Q4H PRN IV SEVERE PAIN LEVEL 7-10; Start 10/03 at 14:30 Famotidine 20 mg 20 mg Q12 PO ; Start 10/03/16 at 21:00 Ceftriaxone Sodium (Rocephin) 50 ml @ 100 mls/hr Q24H IVPB Last administered on 10/03/16 14:43; Admin Dose 100 MLS/HR; Start 10/03/16 at 14:30 FRANCIE PEACE NP Oct 04, 2016 09:12
[2016-10-04] MEDS ORDERED: ONDANSETRON 4 MG INJ IV PRN (10:00)
[2016-10-04] MEDS ORDERED: ALBUMIN HUMAN 5% 250 ML IV PRN (10:00)
[2016-10-04] MEDS ORDERED: hydrALAzine 20 MG INJ IV PRN (10:00)
[2016-10-04] MEDS ORDERED: METOCLOPRAMIDE 10 MG INJ IV PRN (10:00)
[2016-10-04] MEDS ORDERED: FENTAnyl 50 MCG/ML VIAL IV PRN ×3 (10:00)
[2016-10-04] MEDS ORDERED: DIPHENHYDRAMINE 50 MG INJ IV PRN (10:00)
[2016-10-04] MEDS ORDERED: LABETALOL HCL 20MG INJ IV PRN (10:00)
[2016-10-04] MEDS ORDERED: MEPERIDINE 25 MG INJ IV PRN (10:00)
[2016-10-04] MEDS ORDERED: EPHEDrine SULFATE 50 MG/5 ML SYG IV PRN (10:00)
[2016-10-04] MEDS ORDERED: morphine (1 MG/ML) 10ML SYRINGE IV PRN ×3 (10:00)
[2016-10-04] MEDS ORDERED: METOCLOPRAMIDE 10 MG INJ ONE (10:02)
[2016-10-04] MEDS ORDERED: ONDANSETRON 4 MG INJ ONE (10:02)
[2016-10-04] MEDS ORDERED: SUGAMMADEX SODIUM 200 MG/2 ML VIAL IV ONE (10:02)
[2016-10-04] MEDS ORDERED: DEXAMETHASONE 4 MG/ML 1 ML INJ ONE (10:02)
[2016-10-04] MEDS ORDERED: KETOROLAC 30 MG INJ ONE (10:02)
[2016-10-04] MEDS ORDERED: EPINEPHrine 0.1 MG/ML SYG ONE (10:04)
--- NOTE | 2016-10-04 10:29 | OPPN ---
Date/Time of Note Date/Time of Note DATE: 10/04/16 TIME: 10:20 Operative Report Preoperative Diagnosis Choledocholithiasis Postoperative Diagnosis Impression: * Choledocholithiasis * Post ERS * Post balloon dilatation * Post stone extraction * Post epinephrine injection to control slight oozing post dilatation Plan: * Observation * Monitor H/H and LFT's * Lap rupert [place] . Operation/Procedure Performed * ERCP +ERS * ERCP +balloon dilatation * ERCP +stone extraction * ERCP + epinephrine injection to control slight oozing post dilatation Provider: CHILANGO RAMIREZ MD Anesthesia Type: general Estimated blood loss: 10 - 50 ml's Transfusion Required: no Specimen: none Grafts/Implants: none Complications: no CHILANGO RAMIREZ MD Oct 04, 2016 10:28
--- NOTE | 2016-10-04 10:57 | RADRPT ---
PROCEDURE: ERCP with washing CLINICAL INDICATION: Choledocholithiasis. Cholelithiasis TECHNIQUE: 6 intraoperative images of ERCP are submitted. Fluoro time: 137.4 sec. COMPARISON: MRCP, ultrasound and CT of 10/03/2016 FINDINGS: A balloon is inflated and the extrahepatic bile duct is cleared. No retained calculus is seen in th e opacified bile ducts. Cholelithiasis IMPRESSION: A balloon is inflated and the extrahepatic bile duct is cleared. No retained calculus is seen in th e opacified bile ducts. Cholelithiasis. Please see procedure report. RPTAT: HJES .Oziel Buitrago MD, Date Time Electronically viewed and signed by .Oziel Buitrago MD, on 10/04/2016 10:56 .S/
--- NOTE | 2016-10-04 11:26 | GILP ---
DATE OF PROCEDURE: 10/03/2016 PROCEDURE: Endoscopic retrograde cholangiopancreatography with endoscopic retrograde sphincterotomy, plus balloon dilatation, plus stone extraction. Plus epinephrine injection to control bleeding HISTORY AND INDICATIONS: The patient with documented choledocholithiasis on MRCP. INSTRUMENT USED: Olympus side viewing panendoscopy. TECHNIQUE: After informed consent, with the patient/relatives understanding the procedure, its indications, potential risks and complications, including but not limited to: allergic reaction, bleeding, perforation or infection, and after all pertinent questions were answered to the patients satisfaction, the patient/relatives signed witnessed informed consent. Following this, premedication was administered slowly IV push under careful cardiovascular and respiratory monitoring with pulse oximetry, automatic blood pressure and nurse monitoring. Once the sedative effect was achieved the patient was place in the prone position in the radiology special procedures suite; the side viewing panendoscope was introduced and advanced under visual control. Careful examination of the upper gastrointestinal tract, both on insertion as well as withdrawal of the instrument disclosed the following findings: ESOPHAGUS: The mucosa of the entire esophagus appears within normal limits. There is no evidence of esophagitis, varices, neoplasm or stricture. No Hiatal Hernia identified. STOMACH: Upon entrance to the stomach air was insufflated, the gastric chacko distended normally. The mucosa of the fundus, body and antrum of the stomach was carefully examined both head-on and on retroflexion, and shows no abnormalities. There is no evidence of gastritis, ulcers or neoplasm. PYLORUS: The pylorus appears patent and within normal limits, with no evidence of gastric outlet obstruction. DUODENUM: The duodenal mucosa was carefully examined in the duodenal bulb as well as the second portion of the duodenum and appears unremarkable with no evidence of duodenitis, ulcer or neoplasm. The instrument was advanced to the second portion of the duodenum. AMPULLA OF VATER: The ampulla of Vater was identified and carefully examined appearing essentially unremarkable. CANNULATION: Cannulation was accomplished slight difficulty. PANCREATOGRAM: Purposeful suboptimal filling shows no abnormalities. CHOLANGIOGRAM: Shows approximately 1 cm common bile duct stone in the distal common bile duct. A standard small sphincterotomy was performed giving the anatomical conditions. The sphincterotomy measured approximately probably about 6 mm. Following this a hurricane 10 mm balloon was utilized to dilate the ampulla to 10 mm. Following this, the stone was retrieved without difficulty. Unfortunately, there was slight oozing at the end of the dilatation and this was easily controlled with epinephrine 1:10,0000 sub-mucosal injection around the ampulla. At the end of the procedure no active bleeding is present, and bile and contrast is seen flowing out of the biliary tree. No evidence of other immediate complications present. The instrument was then withdrawn, the patient tolerated the procedure well and was transfer out of the endoscopy suite awake, and in good condition to continue recovery under observation. IMPRESSION: 1. Choledocholithiasis. 2. Post-endoscopic retrograde sphincterotomy. 3. Post-balloon dilatation. 4. Post-stone extraction. 5. Post-epinephrine injection at the area of the ampulla to control slight oozing post-dilatation. RECOMMENDATIONS: Observation. Monitor hemoglobin and hematocrit, and liver function test. Laparoscopic cholecystectomy as soon as possible to avoid further episodes of choledocholithiasis. Dictated By: Shanel Owen MD /mee/armando /Document#: [id number]
--- NOTE | 2016-10-04 11:40 | PN ---
Date/Time of Note Date/Time of Note DATE: 10/04/16 TIME: 11:29 Assessment/Plan Lines/Catheters IV C[facility]ter Type (from [facility] Peripheral IV Assessment/Plan Chief Complaint/Hosp Course 1. Choledocholithiasis: No abdominal pain currently: s/p ercp: choledocholithiasis, stone extraction -pain management -advance diet 2. Cholelithiasis without cholecystitis: Gb with multiple stones; per gi rec: cholecystectomy jae -cholecystectomy -as above 3. Hypernatremia -judicious fluids 4. Overweight: BMI 30 -diet and lifestyle modification Patient seen and examined in collaboration with Dr. Johny Emanuel. Thank you. Problems: Subjective 24 Hr Interval Summary s/p ercp with stone extraction. Feeling well. Hungry, no c/o pain, no fevers, chills, cp, palpitations, n/v/d. Exam/Review of Systems Vital Signs Vitals Vital Signs Date Time Temp Pulse Resp B/P Pulse Ox O2 Delivery O2 Flow Rate FiO2 10/04/16 10:54 78 21 105/44 99 Room Air 10/04/16 10:21 97.6 8.0 Intake and Output 10/03/16 10/03/16 10/04/16 15:00 23:00 07:00 Intake Total 350 ml 1165 ml Balance 350 ml 1165 ml Exam Free Text/Dictation Constitutional: alert, oriented Psych: nl mood/affect, no complaints Head: atraumatic, normocephalic Eyes: nl conjunctiva, nl lids, nl sclera, No icteric ENMT: mucosa pink and moist Neck: non-tender, supple Respiratory: clear to auscultation, normal air movement Cardiovascular: nl pulses, regular rate and rhythm Gastrointestinal: bowel sounds, distended (mod), min tender, soft Genitourinary - Female: nl external genitalia Musculoskeletal: nl extremities to inspection Extremities: normal pulses, No clubbing, No edema Neurological: nl mental status, nl speech, nl strength Skin: No rash or lesions Results Result Diagram: 10/03/16 0650 10/03/16 0650 JAY SANDERS NP Oct 04, 2016 11:39
[2016-10-04 12:22] LABS: HEMOGLOBIN 12.8 g/dl (12.0-16.0)
[2016-10-04] MEDS: FAMOTIDINE 20 MG TAB PO SCH ×2 (14:09→20:35)
[2016-10-04] MEDS: CEFTRIAXONE 1 GM/50 ML (PMX) 50 ML IVPB SCH (14:10)
[2016-10-04 18:05] LABS: HEMATOCRIT 39.6 % (37.0-47.0); HEMOGLOBIN 13.1 g/dl (12.0-16.0)
[2016-10-05 00:06] VITALS: BP 109/62; RESP 18
[2016-10-05 01:42] LABS: HEMATOCRIT 35.9 % (37.0-47.0)
[2016-10-05] MEDS: D5W-0.45 NACL + KCL 20 MEQ 1,000 ML IV SCH (02:06)
[2016-10-05 04:22] VITALS: BP 105/51; RESP 19
[2016-10-05 05:09] LABS: BASOPHILS % 0.5 % (0.0-2.0); EOSINOPHILS # 0.1 10^3/ul (0.0-0.5); LYMPHOCYTES % 23.8 % (15.0-51.0); MEAN CORPUSCULAR HEMOGLOBIN 29.9 pg (29.0-33.0); MEAN CORPUSCULAR HGB CONC 33.3 g/dl (32.0-37.0); MEAN CORPUSCULAR VOLUME 89.6 fl (82.0-101.0); MEAN PLATELET VOLUME 10.9 fl (7.4-10.4); MONOCYTE # 0.7 10^3/ul (0.3-0.9); MONOCYTES % 8.5 % (0.0-11.0); NEUTROPHIL # 5.4 10^3/ul (1.6-7.5); PLATELET COUNT 219 10^3/UL (140-415); RED BLOOD COUNT 4.02 10^6/ul (4.20-5.40); RED CELL DISTRIBUTION WIDTH 12.3 % (11.5-14.5); WHITE BLOOD COUNT 8.2 10^3/ul (4.8-10.8)
[2016-10-05 05:16] LABS: MAGNESIUM 1.9 mg/dl (1.7-2.5); PHOSPHORUS 2.9 mg/dl (2.5-4.9)
[2016-10-05 05:19] LABS: ALBUMIN 3.8 g/dl (3.3-4.9); ALBUMIN/GLOBULIN RATIO 1.22; BILIRUBIN,INDIRECT 0.2 mg/dl (0-1.1); BILIRUBIN,TOTAL 0.2 mg/dl (0.2-1.3); CALCIUM 8.9 mg/dl (8.4-10.2); CREATININE 0.62 mg/dl (0.44-1.00); POTASSIUM 3.9 mmol/L (3.5-5.1); TOTAL PROTEIN 6.9 g/dl (6.1-8.1)
[2016-10-05 07:24] VITALS: BP 96/52; RESP 19
--- NOTE | 2016-10-05 08:42 | PN ---
Date/Time of Note Date/Time of Note DATE: 10/05/16 TIME: 08:41 Assessment/Plan VTE Prophylaxis VTE Prophylaxis Intervention: SCD's Lines/Catheters IV [facility] Type (from [facility]): Peripheral IV Assessment/Plan Chief Complaint/Hosp Course 1. Abdominal pain. Secondary to cholelithiasis and underlying choledocholithiasis. Status post ERCP on 10/04/2016 with endoscopic retrograde sphincterotomy plus balloon dilatation plus stone extraction plus epinephrine injection to control bleeding. Gastroenterology and general surgery following. 2. Positive urinalysis. Possible possible underlying urinary tract infection. Urine cultures pending. The patient will be continued on empiric antibiotics. 3. Overweight. BMI of 29.5 kg/m. Weight reduction advised. 4. Fluids, electrolytes, and nutrition. Soft diet. Continue IV fluids. 5. DVT prophylaxis. Bilateral sequential compression devices. 6. Plan. Advance diet as tolerated. Await clearance from consultants before discharge with arrangements for outpatient elective cholecystectomy if agreed by consultants. The case and management of this patient was fully discussed with . Problems: Subjective 24 Hr Interval Summary Free Text/Dictation Tolerating soft diet. Exam/Review of Systems Vital Signs Vitals Vital Signs Date Time Temp Pulse Resp B/P Pulse Ox O2 Delivery O2 Flow Rate FiO2 10/05/16 07:24 98.3 72 19 96/52 96 10/04/16 11:45 Room Air 10/04/16 10:21 8.0 Intake and Output 10/04/16 10/04/16 10/05/16 15:00 23:00 07:00 Intake Total 585 ml 1220 ml 1680 ml Output Total 1600 ml 1000 ml Balance 585 ml -380 ml 680 ml Exam General: Adequately build 31 year-old female lying in bed in no apparent distress. HEENT: Normocephalic, atraumatic. Eyes: Anicteric sclerae, conjunctivae clear. ENT: Nasal septum midline, oral mucosa moist. Neck supple, no JVD noticed. Respiratory: Bilaterally clear breath sounds. No use of accessory muscles of respiration. No adventitious breath sounds. Cardiovascular: S1, S2 heard. No murmurs or gallops. Abdomen: Soft, nontender, and nondistended. Bowel sounds positive in all 4 quadrants. Genitourinary: No CVA tenderness. Extremities: No cyanosis, no clubbing, no edema. Peripheral pulses palpable. Neurologic: Cranial nerves II through XII grossly intact. The patient is awake, alert, and oriented. Skin: Normal skin turgor. No skin rashes. Results Result Diagram: 10/05/16 0433 10/05/16 0432 Results 24 hrs Laboratory Tests Test 10/04/16 11:55 10/04/16 17:42 10/05/16 00:50 10/05/16 04:32 Hemoglobin 12.8 13.1 12.0 Hematocrit 39.0 39.6 35.9 L Sodium Level 143 Potassium Level 3.9 Chloride Level 106 Carbon Dioxide Level 26 Anion Gap 15 Blood Urea Nitrogen 11 Creatinine 0.62 Glucose Level 109 Calcium Level 8.9 Phosphorus Level 2.9 Magnesium Level 1.9 Total Bilirubin 0.2 Direct Bilirubin 0.00 Indirect Bilirubin 0.2 Aspartate Amino Transf (AST/SGOT) 50 H Alanine Aminotransferase (ALT/SGPT) 78 H Alkaline Phosphatase 53 Total Protein 6.9 Albumin 3.8 Globulin 3.10 Albumin/Globulin Ratio 1.22 Amylase Level 83 Lipase 166 Test 10/05/16 04:33 White Blood Count 8.2 # Red Blood Count 4.02 L Hemoglobin 12.0 Hematocrit 36.0 L Mean Corpuscular Volume 89.6 Mean Corpuscular Hemoglobin 29.9 Mean Corpuscular Hemoglobin Concent 33.3 Red Cell Distribution Width 12.3 Platelet Count 219 Mean Platelet Volume 10.9 H Neutrophils % 66.0 Lymphocytes % 23.8 Monocytes % 8.5 Eosinophils % 1.0 Basophils % 0.5 Nucleated Red Blood Cells % 0.0 Neutrophils # 5.4 Lymphocytes # 2.0 Monocytes # 0.7 Eosinophils # 0.1 Basophils # 0.0 Nucleated Red Blood Cells # 0.0 Medications Medications Current Medications Potassium Chloride/Dextrose/ Sod Cl (D5-1/2ns + KCl 20 Meq) 1,000 ml @ 100 mls/ hr Q10H IV Last administered on 10/05/16t 02:06; Admin Dose 100 MLS/HR; Start 10/03/16 at 14:21 Ondansetron HCl (Zofran Inj) 4 mg Q6H PRN IV NAUSEA AND/OR VOMITING; Start 01/09 at 14:30 Acetaminophen (Tylenol Tab) 650 mg Q6H PRN PO PAIN LEVEL 1-3 OR FEVER; Start 8 /11/17 at 14:30 Acetaminophen/ Hydrocodone Bitart ([place] (5/325)) 1 tab Q6H PRN PO MODERATE PAIN LEVEL 4-6; Start 10/03/16 at 14:30 Morphine Sulfate (morphine) 2 mg Q4H PRN IV SEVERE PAIN LEVEL 7-10; Start 10/03 at 14:30 Famotidine 20 mg 20 mg Q12 PO Last administered on 10/04/16 20:35; Admin Dose 20 MG; Start 10/03/16 at 21:00 Ceftriaxone Sodium (Rocephin) 50 ml @ 100 mls/hr Q24H IVPB Last administered on 10/04/16 14:10; Admin Dose 100 MLS/HR; Start 10/03/16 at 14:30 FRANCIE PEACE NP Oct 05, 2016 08:42
[2016-10-05] MEDS: FAMOTIDINE 20 MG TAB PO SCH (08:56)
[2016-10-05 10:06] LABS: CHOL/HDL RATIO 3.3 RATIO
--- NOTE | 2016-10-05 10:45 | PN ---
Date/Time of Note Date/Time of Note DATE: 10/05/16 TIME: 10:37 Assessment/Plan VTE Prophylaxis VTE Prophylaxis Intervention: ambulation Lines/Catheters IV Catheter Type (from [facility]): Peripheral IV Assessment/Plan Chief Complaint/Hosp Course Problems: Assessment/Plan Assessment * Assessment Abdominal pain MRCP 5 mm obstructive calculus in the distal common bile duct resulting mild extrahepatic ductal dilatation . Cholelithiasis without evidence of cholecystitis. ERCP Choledocholithiasis. Post-endoscopic retrograde sphincterotomy. . Post-balloon dilatation. . Post-stone extraction. Post-epinephrine injection at the area of the ampulla to control slight oozing post-dilatation. Plan * Continue present management * defer to surgery for management of cholelithiasis * Case discussed with Dr Owen * Further orders will depend on clinical course Subjective 24 Hr Interval Summary Free Text/Dictation * Course reviewed * patient seen and examined * ERCP Choledocholithiasis. . Post-endoscopic retrograde sphincterotomy. . Post-balloon dilatation. Post-stone extraction. Post-epinephrine injection at the area of the ampulla to control slight oozing post-dilatation. * No untoward events overnight * Tolerating diet Exam/Review of Systems Vital Signs Vitals Vital Signs Date Time Temp Pulse Resp B/P Pulse Ox O2 Delivery O2 Flow Rate FiO2 10/05/16 07:24 98.3 72 19 96/52 96 10/04/16 11:45 Room Air 10/04/16 10:21 8.0 Intake and Output 10/04/16 10/04/16 10/05/16 15:00 23:00 07:00 Intake Total 585 ml 1220 ml 1680 ml Output Total 1600 ml 1000 ml Balance 585 ml -380 ml 680 ml Exam Constitutional: alert, oriented Eyes: nl conjunctiva ENMT: nl lips & teeth, nl nasal mucosa & septum Neck: non-tender, supple Respiratory: clear to auscultation, normal air movement Cardiovascular: nl pulses, regular rate and rhythm Gastrointestinal: non-tender, soft Musculoskeletal: nl extremities to inspection, nl gait and stance Extremities: normal pulses Neurological: nl mental status, nl speech, nl strength Skin: nl turgor, No rash or lesions Results Result Diagram: 10/05/16 0433 10/05/16 0432 Results 24 hrs Laboratory Tests Test 10/04/16 11:55 10/04/16 17:42 10/05/16 00:50 10/05/16 04:28 Hemoglobin 12.8 13.1 12.0 Hematocrit 39.0 39.6 35.9 L Hemoglobin A1c 5.0 Triglycerides Level 57 Cholesterol Level 126 LDL Cholesterol, Calculated 77 HDL Cholesterol 38 Cholesterol/HDL Ratio 3.3 Test 10/05/16 04:32 10/05/16 04:33 Sodium Level 143 Potassium Level 3.9 Chloride Level 106 Carbon Dioxide Level 26 Anion Gap 15 Blood Urea Nitrogen 11 Creatinine 0.62 Glucose Level 109 Calcium Level 8.9 Phosphorus Level 2.9 Magnesium Level 1.9 Total Bilirubin 0.2 Direct Bilirubin 0.00 Indirect Bilirubin 0.2 Aspartate Amino Transf (AST/SGOT) 50 H Alanine Aminotransferase (ALT/SGPT) 78 H Alkaline Phosphatase 53 Total Protein 6.9 Albumin 3.8 Globulin 3.10 Albumin/Globulin Ratio 1.22 Amylase Level 83 Lipase 166 White Blood Count 8.2 # Red Blood Count 4.02 L Hemoglobin 12.0 Hematocrit 36.0 L Mean Corpuscular Volume 89.6 Mean Corpuscular Hemoglobin 29.9 Mean Corpuscular Hemoglobin Concent 33.3 Red Cell Distribution Width 12.3 Platelet Count 219 Mean Platelet Volume 10.9 H Neutrophils % 66.0 Lymphocytes % 23.8 Monocytes % 8.5 Eosinophils % 1.0 Basophils % 0.5 Nucleated Red Blood Cells % 0.0 Neutrophils # 5.4 Lymphocytes # 2.0 Monocytes # 0.7 Eosinophils # 0.1 Basophils # 0.0 Nucleated Red Blood Cells # 0.0 Medications Medications Current Medications Potassium Chloride/Dextrose/ Sod Cl (D5-1/2ns + KCl 20 Meq) 1,000 ml @ 100 mls/ hr Q10H IV Last administered on 10/05/16t 02:06; Admin Dose 100 MLS/HR; Start 10/03/16 at 14:21 Ondansetron HCl (Zofran Inj) 4 mg Q6H PRN IV NAUSEA AND/OR VOMITING; Start 01/09 at 14:30 Acetaminophen (Tylenol Tab) 650 mg Q6H PRN PO PAIN LEVEL 1-3 OR FEVER; Start at 14:30 Acetaminophen/ Hydrocodone Bitart ([place] (5/325)) 1 tab Q6H PRN PO MODERATE PAIN LEVEL 4-6; Start 8/11/17 at 14:30 Morphine Sulfate (morphine) 2 mg Q4H PRN IV SEVERE PAIN LEVEL 7-10; Start 10/03 at 14:30 Famotidine 20 mg 20 mg Q12 PO Last administered on 10/05/16 08:56; Admin Dose 20 MG; Start 10/03/16 at 21:00 Ceftriaxone Sodium (Rocephin) 50 ml @ 100 mls/hr Q24H IVPB Last administered on 10/04/16 14:10; Admin Dose 100 MLS/HR; Start 10/03/16 at 14:30 MAYO ENNIS NP Oct 05, 2016 10:45
--- NOTE | 2016-10-05 11:03 | PDOCDIS ---
Discharge Instructions DIAGNOSIS Discharge Diagnosis Choledocholithiasis. Status post ERCP and removal of stones. CONDITION Patient Condition: Stable HOME CARE INSTRUCTIONS: Diet Instructions: Low Fat /Cholesterol FOLLOW UP/APPOINTMENTS Follow-up Plan Hema Mccann MD Specialty: Internal Medicine Office Address: [address] [place] [address] [place], [place] [id number] Office OTHER ORDERS: Other Orders: 1. Take a low-cholesterol diet. 2. Resume activities as tolerated. 3. Follow-up with Dr. Hema Mccann's office and arrange with Dr. Mccann for outpatient surgical evaluation for elective cholecystectomy. 4. Please go to the nearest emergency room if you continue to have significant abdominal pain, persistent fevers, persistent nausea/vomiting, or any other unusual signs/symptoms. FRANCIE PEACE NP Oct 05, 2016 11:03
--- NOTE | 2016-10-05 11:31 | PN ---
Date/Time of Note Date/Time of Note DATE: 10/05/16 TIME: 11:27 Assessment/Plan Lines/Catheters IV C[facility]ter Type (from [facility]): Peripheral IV Assessment/Plan Chief Complaint/Hosp Course 1. Choledocholithiasis: No abdominal pain currently: s/p ercp: choledocholithiasis, stone extraction; no pain, tolerating diet 2. Cholelithiasis without cholecystitis: Gb with multiple stones; per gi rec: cholecystectomy -cholecystectomy may be done outpatient; please have patient follow up with gen surgery as soon as possible -as above 3. Overweight: BMI 30 -diet and lifestyle modification Patient seen and examined in collaboration with Dr. Johny Emanuel. Thank you. Problems: Subjective 24 Hr Interval Summary Feels well. Tolerating diet. No abdominal pain. + flatus. No n/v/d/dysuria, fevers, chills, cp, sob, cough, palpitations. Exam/Review of Systems Vital Signs Vitals Vital Signs Date Time Temp Pulse Resp B/P Pulse Ox O2 Delivery O2 Flow Rate FiO2 10/05/16 07:24 98.3 72 19 96/52 96 10/04/16 11:45 Room Air 10/04/16 10:21 8.0 Intake and Output 10/04/16 10/04/16 10/05/16 15:00 23:00 07:00 Intake Total 585 ml 1220 ml 1680 ml Output Total 1600 ml 1000 ml Balance 585 ml -380 ml 680 ml Exam Free Text/Dictation Constitutional: alert, oriented Psych: nl mood/affect, no complaints Head: atraumatic, normocephalic Eyes: nl conjunctiva, nl lids, nl sclera, No icteric ENMT: mucosa pink and moist Neck: non-tender, supple Respiratory: clear to auscultation, normal air movement Cardiovascular: nl pulses, regular rate and rhythm Gastrointestinal: bowel sounds, non-distended , non tender, soft Genitourinary - Female: nl external genitalia Musculoskeletal: nl extremities to inspection Extremities: normal pulses, No clubbing, No edema Neurological: nl mental status, nl speech, nl strength Skin: No rash or lesions Results Result Diagram: 10/05/16 0433 10/05/16 0432 JAY SANDERS NP Oct 05, 2016 11:30
--- NOTE | 2016-10-05 11:56 | DS ---
Date/Time of Note Date/Time of Note DATE: 10/05/16 TIME: 11:53 Discharge Summary Admission/Discharge Info Admit Date/Time Oct 03, 2016 at 13:36 Discharge Date/Time Discharge Diagnosis 1. Choledocholithiasis. Status post ERCP and stone removal on 10/04/2016. 2. Symptomatic cholelithiasis. Outpatient follow-up for elective cholecystectomy. 3. Overweight. BMI 29.5 kg/m. Patient Condition: Stable Consults 1. Shanel Owen MD, Gastroenterology. 2. Johny Emanuel MD, General Surgery. Procedures CT Scan of the Abdomen and Pelvis IMPRESSION: The gallbladder has either sludge or stones with possible gallbladder wall thickening that is indeterminate and can be better assessed with gallbladder ultrasound. There is slight prominence of the common duct without roberto carlos dilatation and this can be correlate with bilirubin levels. There is a diffusely fecal filled colon. No evidence of bowel obstruction or inflammation. There is no appendicitis. Abdominal MRI IMPRESSION: 1. 5 mm obstructive calculus in the distal common bile duct resulting mild extrahepatic ductal dilatation (pictured below). 2. Cholelithiasis without evidence of cholecystitis. ERCP on 10/04/2016 Endoscopic retrograde cholangiopancreatography with endoscopic retrograde sphincterotomy, plus balloon dilatation, plus stone extraction. Plus epinephrine injection to control bleeding. Hx of Present Illness Reason for admission: Abdominal pain. Consultants 1. Shanel Owen MD, Gastroenterology. 2. Johny Emanuel MD, General Surgery. This is a 31-year-old female who denied any significant past medical history came to the emergency room with a chief complaint of abdominal pain that has been going on since the morning of 10/03/2016. The patient described the pain as sharp. The patient also verbalized associated nausea. The patient denied any vomiting. She denied any constipation or diarrhea. She denied any fevers or chills. The patient denied any dysuria, hematuria, or pyuria. The patient verbalized that she had a similar problem approximately 3 months ago when she was told that she has gallstones. The patient tried [id number] ibuprofen with minimal pain relief. The patient denied any other symptoms including any constitutional symptoms. In the emergency room, the patient underwent a CT scan of the abdomen and pelvis that showed gallbladder with either sludge or stones with possible gallbladder wall thickening that is indeterminate with a slight prominence of the common bile duct without roberto carlos dilatation. The CT also showed diffusely fecal filled colon with no evidence of bowel obstruction or inflammation. The patient underwent a gallbladder ultrasound that showed cholelithiasis with a mildly dilated common bile duct. The ultrasound also revealed mild right hydronephrosis. The patient subsequently underwent an abdominal MRI that showed 5 mm obstructing calculus in the distal common bile duct resulting in mild extrahepatic ductal diet dilatation and cholelithiasis without evidence of cholecystitis. The patient had no leukocytosis. The patient remained afebrile. The patient's urinalysis showed 2+ leukocyte esterase with urine microscopic WBC of 17. Hospital Course The patient was admitted to inpatient medical surgical floor. Gastroenterology and general surgery consult was called on this patient. The patient underwent an ERCP on 10/04/2016 with balloon dilatation plus stone extraction plus epinephrine injection to control bleeding. Postprocedure, the patient was brought back to medical surgical floor. The patient was started on a clear liquid diet and the patient's diet was advanced as tolerated to regular consistency diet without any significant gastrointestinal symptoms. The patient had no evidence of any acute cholecystitis. The patient had positive urinalysis on presentation. The patient was continued on empiric antibiotics. However, the patient's urine culture showed Lactobacillus species. Hence the patient's antibiotics will be discontinued. The patient was noted to be slightly overweight with a BMI of 29.5 kg/m. The patient was advised on weight reduction. The patient's fasting lipid panel and hemoglobin A1c are within normal limits. The patient is able to tolerate a regular consistency diet without any significant gastrointestinal symptoms. The patient had no evidence of any significant transaminitis or hyperbilirubinemia. The patient definitely needs a cholecystectomy. However, this can be done as outpatient. Therefore, the patient will be discharged home to be followed up with outpatient surgery for elective cholecystectomy in the near future. Discharge Instructions 1. Take a low-cholesterol diet. 2. Resume activities as tolerated. 3. Follow-up with Dr. Hema Mccann's office and arrange with Dr. Mccann for outpatient surgical evaluation for elective cholecystectomy. 4. Please go to the nearest emergency room if you continue to have significant abdominal pain, persistent fevers, persistent nausea/vomiting, or any other unusual signs/symptoms. The patient verbalized understanding of her discharge instructions. At this time I would like to thank all the consultants for seeing the patient, doing the necessary procedures, and providing clinical recommendations. Case discussed with Dr. Alvarado. Follow-up Plan Follow-up with Dr. Hema Mccann's office at the earliest. Arrange with Dr. Bk Mccann for outpatient surgical follow-up for elective cholecystectomy. Primary Care Provider Care Physician No Primary Time spent on discharge: > 30 minutes Pending Labs Laboratory Tests Test 10/04/16 11:55 10/04/16 17:42 10/05/16 00:50 10/05/16 04:28 Hemoglobin 12.8g/dl (12.0-16.0) 13.1g/dl (12.0-16.0) 12.0g/dl (12.0-16.0) Hematocrit 39.0% (37.0-47.0) 39.6% (37.0-47.0) 35.9% (37.0-47.0) Hemoglobin A1c 5.0% (0-5.9) Triglycerides Level 57mg/dl (0-149) Cholesterol Level 126mg/dl (100-200) LDL Cholesterol, Calculated 77mg/dl HDL Cholesterol 38mg/dl (34-82) Cholesterol/HDL Ratio 3.3RATIO Test 10/05/16 04:32 10/05/16 04:33 Sodium Level 143mmol/L (135-144) Potassium Level 3.9mmol/L (3.5-5.1) Chloride Level 106mmol/L (97-110) Carbon Dioxide Level 26mmol/L (21-31) Anion Gap 15 (8-16) Blood Urea Nitrogen 11mg/dl (7-20) Creatinine 0.62mg/dl (0.44-1.00) Glucose Level 109mg/dl (70-220) Calcium Level 8.9mg/dl (8.4-10.2) Phosphorus Level 2.9mg/dl (2.5-4.9) Magnesium Level 1.9mg/dl (1.7-2.5) Total Bilirubin 0.2mg/dl (0.2-1.3) Direct Bilirubin 0.00mg/dl (0.00-0.20) Indirect Bilirubin 0.2mg/dl (0-1.1) Aspartate Amino Transf (AST/SGOT) 50IU/L (15-46) Alanine Aminotransferase (ALT/SGPT) 78IU/L (13-69) Alkaline Phosphatase 53IU/L (42-121) Total Protein 6.9g/dl (6.1-8.1) Albumin 3.8g/dl (3.3-4.9) Globulin 3.10g/dl (1.3-3.2) Albumin/Globulin Ratio 1.22 Amylase Level 83U/L (11-123) Lipase 166U/L (23-300) White Blood Count 8.210^3/ul (4.8-10.8) Red Blood Count 4.0210^6/ul (4.20-5.40) Hemoglobin 12.0g/dl (12.0-16.0) Hematocrit 36.0% (37.0-47.0) Mean Corpuscular Volume 89.6fl (82.0-101.0) Mean Corpuscular Hemoglobin 29.9pg (29.0-33.0) Mean Corpuscular Hemoglobin Concent 33.3g/dl (32.0-37.0) Red Cell Distribution Width 12.3% (11.5-14.5) Platelet Count 35793^3/UL (140-415) Mean Platelet Volume 10.9fl (7.4-10.4) Neutrophils % 66.0% (39.0-77.0) Lymphocytes % 23.8% (15.0-51.0) Monocytes % 8.5% (0.0-11.0) Eosinophils % 1.0% (0.0-7.0) Basophils % 0.5% (0.0-2.0) Nucleated Red Blood Cells % 0.0/100WBC (0.0-0.0) Neutrophils # 5.410^3/ul (1.6-7.5) Lymphocytes # 2.010^3/ul (0.8-2.9) Monocytes # 0.710^3/ul (0.3-0.9) Eosinophils # 0.110^3/ul (0.0-0.5) Basophils # 0.010^3/ul (0.0-0.1) Nucleated Red Blood Cells # 0.010^3/ul (0.0-0.0) FRANCIE PEACE NP Oct 05, 2016 11:56
== END 2016-10-05 13:00 | disposition home or self-care (01) ==
LOC: E/R 06:09 → MS1 13:36 → E/R 17:58 → MS1 17:58 → E/R 22:00
PROVIDERS: ADMIT Internal Medicine; ATTEND Internal Medicine
DX: K80.70 Calculus of gallbladder and bile duct without cholecystitis without obstruction (principal); E66.3 Overweight; Z68.29 Body mass index [BMI] 29.0-29.9, adult; E87.0 Hyperosmolality and hypernatremia
CPT/HCPCS: 36415; 43262; 43264; 74177; 74181; 74330; 76705; 80053; 80061; 81001; 82150; 83036; 83690; 83735; 84100; 84703; 85014; 85018; 85025; 87086; 96374; 96375; J0690; J0696; J1100; J1170; J1885; J2250; J2405; J2765; J3010; J3480; J7030; Q9967; Z7500; Z7502; Z7512; Z7610; G0378; J0171